=== PATIENT | male | born 1990 | race Caucasian/White ===

== ENCOUNTER 2021-03-20 13:29 | Emergency (ER) | payer OTHER ==
[2021-03-20 16:07] VITALS: BP 115/78
== END 2021-03-20 15:58 | disposition home or self-care (01) ==
LOC: ED 13:29
DX: S39.011A Strain of muscle, fascia and tendon of abdomen, initial encounter (principal); K40.90 Unilateral inguinal hernia, without obstruction or gangrene, not specified as recurrent; X58.XXXA Exposure to other specified factors, initial encounter; Y93.B2 Activity, push-ups, pull-ups, sit-ups; Y99.0 Civilian activity done for income or pay